=== PATIENT | female | born 1955 | race Hispanic/Latino ===

== ENCOUNTER 2021-04-06 15:37 | Emergency (ER) | payer OTHER, BC ==
[2021-04-06 15:50] VITALS: BP 117/77
[2021-04-06] MEDS ORDERED: TETANUS,DIPH,PERTUSS(ACELL) VACCINE 0.5 ML SYRINGE IM ONE (17:08)
--- NOTE | 2021-04-06 17:10 | Event Note ---
ED Screening Note Date of service: 04/06/21 Time: 17:09 ED Screening Note: 65-year-old female patient presents to the emergency department with complaints of an accidental laceration to her left index finger occurring earlier today. Patient states she was at work when she accidentally cut her left index finger with a knife. Cannot recall last tetanus immunization. Patient is not anticoagulated. General: Awake, appropriately interactive, no acute distress. Neck: Supple. Full range of motion intact. Cardiovascular: Normal peripheral perfusion. Pulmonary: No respiratory distress. Patient is speaking normally without use of accessory muscles. Skin: Curvilinear laceration noted to the volar aspect of the left index finger with minimal active bleeding. Distal neurovascular and motor/sensory function intact. Neurological: No facial asymmetry. Speech is clear. Follows commands. Patient is alert and oriented. Musculoskeletal: Moves all four extremities spontaneously with normal range of motion. Psych: Cooperative. Appropriate mood and affect. I have greeted and performed a focused rapid initial assessment of this patient. A comprehensive ED assessment and evaluation of the patient, analysis of all test results, and completion of the medical decision-making process will be conducted by additional ED providers. This initial assessment/diagnostic orders/clinical plan/treatment(s) is/are subject to change based on patients health status, clinical progression and re-assessment. Further treatment and workup at subsequent clinical provider's discretion. Patient/guardian urged not to elope from the ED as their condition may be serious if not clinically assessed and managed.
--- NOTE | 2021-04-06 19:54 | Emergency Department Report ---
ED General Adult HPI - General Chief complaint: Wound/Laceration Stated complaint: LT INDEX FINGER CUT/WORK INJURY Time Seen by Provider: 04/06/21 19:41 Source: patient Mode of arrival: Ambulatory Limitations: No Limitations - History of Present Illness Initial comments: 65-year-old female patient presents with complaints of left index finger laceration today. Patient states she cut her finger while at work with a knife while cutting open a package of meat. She is unsure of her last tetanus vaccination. She denies any numbness/tingling or weakness in her finger. No anticoagulants per patient. Pain worsens with range of motion, however patient does retain full range of motion of the finger -: Sudden - Related Data Previous Rx's Medication Instructions Recorded Last Taken Type cephALEXin [Keflex] 500 mg PO Q12HR 7 Days #14 cap 04/06/21 Unknown Rx Allergies Allergy/AdvReac Type Severity Reaction Status Date / Time Penicillins Allergy Hives Verified 04/06/21 15:46 ED Review of Systems ROS: Stated complaint: LT INDEX FINGER CUT/WORK INJURY Other details as noted in HPI Musculoskeletal: denies: arthralgia Skin: as per HPI. denies: change in color Neurological: denies: numbness, paresthesias ED Past Medical Hx - Past Medical History Previous Medical History?: No - Surgical History Past Surgical History?: No - Social History Smoking Status: Never Smoker Substance Use Type: None - Medications Home Medications: Home Medications Medication Instructions Recorded Confirmed Last Taken Type cephALEXin [Keflex] 500 mg PO Q12HR 7 Days #14 cap 04/06/21 Unknown Rx ED Physical Exam - General Limitations: No Limitations General appearance: alert, in no apparent distress - Head Head exam: Present: atraumatic, normocephalic - Eye Eye exam: Present: normal appearance - Respiratory Respiratory exam: Absent: respiratory distress - Cardiovascular Cardiovascular Exam: Present: regular rate - Neurological Exam Neurological exam: Present: alert, oriented X3 - Psychiatric Psychiatric exam: Present: normal affect, normal mood - Skin Skin exam: Present: warm, dry, normal color. Absent: intact (Flap laceration noted to posterior aspect of left index finger without active bleeding or obvious foreign body;), rash ED Course Vital Signs 04/06/21 15:46 Temperature 98 F Pulse Rate 102 H Respiratory 18 Rate Blood Pressure 117/77 O2 Sat by Pulse 99 Oximetry - Laceration /Wound Repair Finger Wound Length (cm): 4 Irrigated w/ Saline (ccs): 40 Betadine Prep?: Yes Wound Repaired With: Dermabond Layer Closure?: No Sterile Dressing Applied?: Yes ED Medical Decision Making - Medical Decision Making 65-year-old female patient presents with complaints of left index finger laceration today. Patient states she cut her finger while at work with a knife while cutting open a package of meat. She is unsure of her last tetanus vaccination. She denies any numbness/tingling or weakness in her finger. No anticoagulants per patient. Pain worsens with range of motion, however patient does retain full range of motion of the finger Patient declines sutures and states she would like Dermabond instead. Wound clean, Dermabond applied, and patient placed in a splint and informed to wear it for 10 days. She is to follow-up with her primary care in 7 days for wound recheck. Her vitals are normal, she is well-appearing, she is stable for discharge home. Wound care and strict return precautions were discussed in detail with patient who verbalized understanding. Patient given prescription for Keflex given knife was dirty that cut her Critical care attestation.: If time is entered above; I have spent that time in minutes in the direct care of this critically ill patient, excluding procedure time. ED Disposition Clinical Impression: Laceration of left index finger Disposition: DC-01 TO HOME OR SELFCARE Is pt being admited?: No Condition: Stable Instructions: Nonsutured Laceration Care, Sutures, [place], or Adhesive Wound Closure Prescriptions: cephALEXin [Keflex] 500 mg PO Q12HR 7 Days #14 cap Referrals: PRIMARY CARE, [Referring] - 3-5 Days Forms: Work/School Release Form(ED)
== END 2021-04-06 20:55 | disposition home or self-care (01) ==
LOC: ED 15:37
DX: S61.211A Laceration without foreign body of left index finger without damage to nail, initial encounter (principal); Z79.899 Other long term (current) drug therapy; Z88.0 Allergy status to penicillin; W26.0XXA Contact with knife, initial encounter; Y93.89 Activity, other specified; Y92.89 Other specified places as the place of occurrence of the external cause; Y99.0 Civilian activity done for income or pay
CPT/HCPCS: 90471; 90715; 99282